=== PATIENT | male | born 1965 | race Caucasian/White ===

== ENCOUNTER 2019-01-26 07:57 | Emergency (ER) | payer SELFPAY ==
[2019-01-26] MEDS ORDERED: LORazepam 2 MG/ML VIAL ONE (08:30)
[2019-01-26] MEDS ORDERED: MULTIVIT INFUSN,ADULT 1,VIT K 10 ML VIAL IV ONE (08:30)
[2019-01-26] MEDS ORDERED: WATER IV ONE (08:30)
[2019-01-26] MEDS ORDERED: DEXTROSE 5% IV ONE (08:30)
[2019-01-26] MEDS ORDERED: ONDANSETRON HCL/PF 4 MG/ 2ML VIAL ONE (08:30)
[2019-01-26] MEDS ORDERED: PANTOPRAZOLE SODIUM INJ. 40 MG VIAL ONE (08:30)
[2019-01-26] MEDS ORDERED: FOLIC ACID 5 MG/1 ML ONE (08:30)
[2019-01-26] MEDS ORDERED: THIAMINE HCL 200 MG/2 ML VIAL ONE (08:30)
[2019-02-06 08:23] LABS: BASOPHILS % 0.4 % (0.0-1.5); NEUTROPHILS # 5.9 # k/uL (1.4-7.7)
[2019-02-06 08:24] LABS: eGFR (Non-African) > 60
== END 2019-01-26 10:10 ==
LOC: ED 07:57
DX: F10.239 Alcohol dependence with withdrawal, unspecified (principal); Y90.9 Presence of alcohol in blood, level not specified
CPT/HCPCS: 80053; 80320; 85025; 99282; 99283; J2060; J2405; J3411; J3490; J7070; G0480